=== PATIENT | male | born 1970 | race Caucasian/White ===

== ENCOUNTER → 2020-03-04 16:24 | Outpatient (BNVA) | payer BC, SELFPAY | PROVIDERS: Family Provider Nurse Practitioner Family; PCP Nurse Practitioner Family; Visit Provider Registered Nurse | DX: F41.9 Anxiety disorder, unspecified (principal); F41.8 Other specified anxiety disorders; M77.8 Other enthesopathies, not elsewhere classified; E78.5 Hyperlipidemia, unspecified; I10 Essential (primary) hypertension | CPT/HCPCS: 80053; 80061; 85025 ==

== ENCOUNTER 2021-02-28 10:04 | Outpatient (CLI) | payer BC, SELFPAY ==
--- NOTE | 2021-02-28 10:39 | ECG_ITS ---
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 Measurements Intervals [place] Rate: 77 P: 28 [place]: 161 QRS: 77 QRSD: 86 T: 48 QT: 341 QTc: 387 Interpretive Statements SINUS RHYTHM NONSPECIFIC T-WAVE ABNORMALITY Compared to ECG 12/26/2017 00:31:46 T-wave abnormality now present Electronically Signed On 02-28-2021 22:24:46 CDT by Brittany Floyd M.D. [email or web address].Fabtipp[facility] hospitalRet[facility] Con[facility].[place] [employer]/store/NU/[id number] f
[2021-02-28 10:41] LABS: Basophils % 0.6 %; Eosinophils # 0.2 10^3/uL (0.0-0.8); Eosinophils % 3.5 %; Hematocrit 44.2 % (42.0-52.0); Hemoglobin 14.9 g/dL (11.7-16.6); Lymphocytes # 1.6 10^3/uL (0.8-4.8); Lymphocytes % 25.3 %; Mean Corpuscular HGB Conc 33.7 g/dL (30.0-36.0); Mean Corpuscular Hemoglobin 30.7 pg (28.0-34.0); Mean Corpuscular Volume 91.1 fL (80-94); Mean Platelet Volume 9.4 fL (7.4-10.4); Monocytes # 0.5 10^3/uL (0.2-0.9); Monocytes % 7.9 %; Neutrophils # 3.94 10^3/uL (1.8-7.7); Neutrophils % 62.2 %; Nucleated Red Blood Cells % 0 %; Platelet Count 291 10^3/cmm (130-400); Red Blood Count 4.85 10^6/uL (4.1-5.3); Red Cell Distribution Width 12.6 % (12.1-15.1); White Blood Count 6.3 10^3/uL (4.0-10.0)
[2021-02-28 11:10] LABS: Alanine Aminotransferase 21 U/L (0-41); Albumin Level 4.2 g/dL (3.5-5.2); Alkaline Phosphatase 104 IU/L (40-130); Anion Gap 12.9 (5-19); Aspartate Amino Transferase 14 U/L (0-40); Blood Urea Nitrogen 14 mg/dL (6-20); Calcium 8.9 mg/dL (8.5-10.5); Carbon Dioxide 29 mmol/L (22-29); Chloride 101 mmol/L (98-107); Chol HDL Ratio 4.89 mg/dL (1.0-5.00); Cholesterol 181 mg/dL (0-200); Globulin 2.6 g/dL (1.3-4.6); Glomerular Filtration Rate 71.4 mL/min (90-130); Glucose 158 mg/dL (65-115); HDL Cholesterol 37 mg/dL (60-100); LDL Cholesterol Calculated 104 mg/dL (50-129); LDL HDL Ratio 2.81 RATIO (0.00-3.22); Osmolality Calculated 292 mOsm/kg (285-295); Potassium 3.9 mmol/L (3.5-5.1); Sodium 139 mmol/L (136-145); Total Bilirubin 0.5 mg/dL (0.15-1.2); Total Protein 6.8 g/dL (6.6-8.7); Triglycerides 202 mg/dL (0-150)
[2021-02-28 11:11] LABS: Troponin(5th) Baseline 6 ng/L (0-15)
[2021-02-28 12:46] LABS: Estmated Average Glucose 114; Hemoglobin A1C 5.6 % (4.0-6.0)
== END 2021-02-28 10:05 | disposition home or self-care (01) ==
PROVIDERS: PCP Registered Nurse; Visit Provider Registered Nurse
DX: R07.9 Chest pain, unspecified (principal); I10 Essential (primary) hypertension; F41.8 Other specified anxiety disorders; E78.5 Hyperlipidemia, unspecified
CPT/HCPCS: 36415; 80053; 80061; 83036; 84484; 85025; 93005

== ENCOUNTER 2021-04-18 20:04 | Emergency (ER) | payer BC, SELFPAY ==
[2021-04-18 20:23] VITALS: BP 113/75; PULSE 79; RESP 18; TEMP 36.8; O2SAT 97; BMI 38.0
--- NOTE | 2021-04-18 20:29 | XRR_ITS ---
PROCEDURE INFORMATION: Exam: XR Chest Exam date and time: 04/18/2021 8:29 PM Age: 50 years old Clinical indication: Shortness of breath; Additional info: Chest pain/ SOB TECHNIQUE: Imaging protocol: XR of the chest. Views: 1 view. COMPARISON: CR Chest 1 [place] [id number] 12/26/2017 1:23 AM FINDINGS: Lungs: Unremarkable. No consolidation. Pleural spaces: Unremarkable. No pleural effusion. No pneumothorax. Heart/Mediastinum: Unremarkable. No cardiomegaly. Bones/joints: Unremarkable. XR/XR chest 1V portable [id number] IMPRESSION: No acute findings.
--- NOTE | 2021-04-18 22:29 | ECG_ITS ---
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 Measurements Intervals [place] Rate: 57 P: 33 [place]: 160 QRS: 80 QRSD: 93 T: 69 QT: 399 QTc: 390 Interpretive Statements SINUS BRADYCARDIA Compared to ECG 02/28/2021 10:24:03 Sinus rhythm no longer present T-wave abnormality no longer present Electronically Signed On 04-20-2021 12:24:58 CDT by Keegan Green M.D. [email or web address].[email or web address]/store/OM/[id number]
[2021-04-18 22:32] LABS: Basophils # 0.1 10^3/uL (0.0-0.1); Basophils % 0.8 %; Eosinophils # 0.4 10^3/uL (0.0-0.8); Eosinophils % 4.2 %; Hematocrit 42.6 % (42.0-52.0); Hemoglobin 14.4 g/dL (11.7-16.6); Lymphocytes # 3.1 10^3/uL (0.8-4.8); Lymphocytes % 30.4 %; Mean Corpuscular HGB Conc 33.8 g/dL (30.0-36.0); Mean Corpuscular Hemoglobin 30.4 pg (28.0-34.0); Mean Corpuscular Volume 89.9 fL (80-94); Mean Platelet Volume 9.6 fL (7.4-10.4); Monocytes % 9.7 %; Neutrophils # 5.53 10^3/uL (1.8-7.7); Neutrophils % 54.6 %; Nucleated Red Blood Cells % 0 %; Platelet Count 338 10^3/cmm (130-400); Red Blood Count 4.74 10^6/uL (4.1-5.3); Red Cell Distribution Width 12.7 % (12.1-15.1); White Blood Count 10.1 10^3/uL (4.0-10.0)
[2021-04-18 22:51] LABS: Troponin(5th) Baseline 6 ng/L (0-15)
[2021-04-18 22:53] LABS: Alanine Aminotransferase 18 U/L (0-41); Albumin Level 4.2 g/dL (3.5-5.2); Alkaline Phosphatase 102 IU/L (40-130); Anion Gap 12.8 (5-19); Aspartate Amino Transferase 15 U/L (0-40); Blood Urea Nitrogen 14 mg/dL (6-20); Calcium 9.1 mg/dL (8.5-10.5); Carbon Dioxide 26 mmol/L (22-29); Chloride 103 mmol/L (98-107); Globulin 2.2 g/dL (1.3-4.6); Glomerular Filtration Rate 71.4 mL/min (90-130); Glucose 92 mg/dL (65-115); Osmolality Calculated 286 mOsm/kg (285-295); Potassium 3.8 mmol/L (3.5-5.1); Sodium 138 mmol/L (136-145); Total Bilirubin 0.2 mg/dL (0.15-1.2); Total Protein 6.4 g/dL (6.6-8.7)
[2021-04-19 00:50] LABS: Troponin 5 2HR 6.27 ng/L (0-15); Troponin 5 2HR Delta 0.27 ABS# (0-10)
--- NOTE | 2021-04-19 00:57 | ED_ITS ---
HPI - Chest Pain General: Chief Complaint: Chest Pain Stated Complaint: Chest Pains Time Seen by Provider: 04/19/21 00:57 History of Present Illness: HPI narrative: 50-year-old male patient comes in today with complaints of irregular rhythm with palpitations for the last month. Patient reports some abnormal symptoms when this occur. Patient states that he seems like the events are occurring more often. Patient does have a history of hypertension and depression with anxiety. Patient appears well. Patient appears no acute distress. Review of Systems General: Reports: 10 or more systems reviewed and unremarkable except in HPI and below Card: Reports: chest pain [facility] ED PFSH: Medical History Essential hypertension Social History (Updated 02/28/21 @ 08:44 by Krystle Das LPN) Smoking and tobacco status: never smoked Second hand smoke exposure: No Alcohol intake: never service: No Current occupational status: employed Sexually active: Yes Current gender identity: Male Physical Exam 2 Const: COMMON NORMALS: no acute distress and patient oriented x3 GENERAL APPEARANCE: cooperative HENMT: COMMON NORMALS: normocephalic and Normal external nose present HEAD & SCALP: normal to inspection and normocephalic NOSE: Normal external nose present MOUTH: Normal oral and palatal mucosa present THROAT: posterior oropharynx normal Eye: GENERAL EYE: appearance normal, both eyes and all related structures Neck/C-Spine: COMMON NORMALS: full ROM Lymph: LYMPHATIC: no lymphadenopathy noted Chest: COMMONS NORMALS: normal inspection of the chest Resp: COMMON NORMALS: normal respiratory effort EFFORT & INSPECTION: Yes able to speak in complete sentences Cardio: COMMON NORMALS: regular rate and regular rhythm RATE: regular rate RHYTHM: regular rhythm GI: COMMON NORMALS: non-tender : COMMON NORMALS: Yes no CVA tenderness BLADDER/KIDNEY EXAM: Yes no CVA tenderness Back/Pelvis: COMMON NORMALS: no CVA tenderness and thoracic and lumbar spine normal to inspection Extremity: COMMON NORMALS: normal to inspection Neuro: COMMON NORMALS: patient oriented x3 and moves all extremities Psych: COMMON NORMALS: mental status grossly normal and cooperative Skin: COMMON NORMALS: no rashes or lesions noted GENERAL SKIN EXAM: no rashes or lesions noted Course Vital Signs: Vital signs: Vital Signs Temperature 98.2 F 04/18/21 20:23 Pulse Rate 79 04/18/21 20:23 Respiratory Rate 18 04/18/21 20:23 Blood Pressure 113/75 04/18/21 20:23 Pulse Oximetry 97 04/18/21 20:23 MDM - Chest Pain MDM Narrative: Medical decision making narrative: 50-year-old male patient comes in with some chest discomfort and palpitations that he is noted at times for the last couple of months. On exam patient appears well. Respirations are even lungs are clear to auscultation. Skin is warm and dry. Auscultation of heart tones notes and occasional PVC. Vital signs otherwise are normal. Differential diagnosis includes a arrhythmia, frequent PVCs, anxiety. EKG showed no significant changes at the 0 and 2-hour gautam. Laboratory values for troponin had no some change remained at 6 at 0 and 2 hours. Remainder of labs were unremarkable. Reviewed the exam with patient and spouse with recommendations for follow-up for further evaluation of an arrhythmia. Patient may be having bouts of atrial fib or other arrhythmia. Patient in spouse were both understanding of recommendations and need for follow-up. Case management referral was placed for follow-up appointment with cardiology. Lab Data: Labs: Lab Results 04/18/21 04/18/21 04/18/21 Range/Units 22:26 22:26 22:26 WBC 10.1 H (4.0-10.0) 10^3/ uL RBC 4.74 (4.1-5.3) 10^6/u L Hgb 14.4 (11.7-16.6) g/dL Hct 42.6 (42.0-52.0) % MCV 89.9 (80-94) fL MCH 30.4 (28.0-34.0) pg MCHC 33.8 (30.0-36.0) g/dL RDW 12.7 (12.1-15.1) % Plt Count 338 (130-400) 10^3/c mm MPV 9.6 (7.4-10.4) fL Neut % (Auto) 54.6 % Lymph % (Auto) 30.4 % Hutchinson % (Auto) 9.7 % Eos % (Auto) 4.2 % Baso % (Auto) 0.8 % Neut # (Auto) 5.53 (1.8-7.7) 10^3/u L Lymph # (Auto) 3.1 (0.8-4.8) 10^3/u L Hutchinson # (Auto) 1.0 H (0.2-0.9) 10^3/u L Eos # (Auto) 0.4 (0.0-0.8) 10^3/u L Baso # (Auto) 0.1 (0.0-0.1) 10^3/u L Nucleated RBC % (a uto) 0 % Nucleated RBCs # 0.0 /100WBC Sodium 138 (136-145) mmol/L Potassium 3.8 (3.5-5.1) mmol/L Chloride 103 (98-107) mmol/L Carbon Dioxide 26 (22-29) mmol/L Anion Gap 12.8 (5-19) BUN 14 (6-20) mg/dL Creatinine 1.1 (0.7-1.2) mg/dL GFR Calculation 71.4 L (90-130) mL/min Glucose 92 (65-115) mg/dL Calculated Osmolal ity 286 (285-295) mOsm/k g Calcium 9.1 (8.5-10.5) mg/dL Total Bilirubin 0.2 (0.15-1.2) mg/dL AST 15 (0-40) U/L ALT 18 (0-41) U/L Alkaline Phosphata se 102 (40-130) IU/L Troponin T Baselin e 6 (0-15) ng/L Troponin T 120 Min [place] (0-15) ng/L Delta Troponin T (0-10) ABS# Total Protein 6.4 L (6.6-8.7) g/dL Albumin 4.2 (3.5-5.2) g/dL Globulin 2.2 (1.3-4.6) g/dL 04/19/21 Range/Units 00:11 WBC (4.0-10.0) 10^3/ uL RBC (4.1-5.3) 10^6/u L Hgb (11.7-16.6) g/dL Hct (42.0-52.0) % MCV (80-94) fL MCH (28.0-34.0) pg MCHC (30.0-36.0) g/dL RDW (12.1-15.1) % Plt Count (130-400) 10^3/c mm MPV (7.4-10.4) fL Neut % (Auto) % Lymph % (Auto) % Hutchinson % (Auto) % Eos % (Auto) % Baso % (Auto) % Neut # (Auto) (1.8-7.7) 10^3/u L Lymph # (Auto) (0.8-4.8) 10^3/u L Hutchinson # (Auto) (0.2-0.9) 10^3/u L Eos # (Auto) (0.0-0.8) 10^3/u L Baso # (Auto) (0.0-0.1) 10^3/u L Nucleated RBC % (a uto) % Nucleated RBCs # /100WBC Sodium (136-145) mmol/L Potassium (3.5-5.1) mmol/L Chloride (98-107) mmol/L Carbon Dioxide (22-29) mmol/L Anion Gap (5-19) BUN (6-20) mg/dL Creatinine (0.7-1.2) mg/dL GFR Calculation (90-130) mL/min Glucose (65-115) mg/dL Calculated Osmolal ity (285-295) mOsm/k g Calcium (8.5-10.5) mg/dL Total Bilirubin (0.15-1.2) mg/dL AST (0-40) U/L ALT (0-41) U/L Alkaline Phosphata se (40-130) IU/L Troponin T Baselin e (0-15) ng/L Troponin T 120 Min [place] 6.27 (0-15) ng/L Delta Troponin T 0.27 (0-10) ABS# Total Protein (6.6-8.7) g/dL Albumin (3.5-5.2) g/dL Globulin (1.3-4.6) g/dL EKG Data^: EKG 1: Attestation: I personally reviewed and interpreted this EKG as follows: (2024, EKG shows a normal sinus rhythm with a regular rate at 77 bpm, no ectopy or ST elevation is noted. No prior exam is available for comparison.) EKG 2: Attestation: I personally reviewed and interpreted this EKG as follows: (114, EKG shows a sinus bradycardia with a regular rate at 57 bpm. No ectopy or ST elevation is noted. No significant changes noted from prior exam.) Discharge Plan Discharge Patient Disposition: Home Clinical Impression: PVC (premature ventricular contraction), Atypical chest pain Condition: Stable Prescriptions: No Action citalopram 20 mg tablet 20 mg PO DAILY Qty: 90 RF: 0 lisinopril 5 mg tablet 5 mg PO DAILY Qty: 90 RF: 0 hydrochlorothiazide 12.5 mg tablet 12.5 mg PO DAILY Qty: 90 RF: 0 Discharge Orders: Discharge ED (Routine); Ordered 04/19/21 Ordered By: Dalton Aguiar Referrals: Gary Peacock APRN [Primary Care Provider] - Discharge Diet: Usual diet Discharge Activity: Resume usual activity Patient Instructions: Chest Pain (ED), Opioid Safety Activity Restrictions/Additional Instructions: Stay well-hydrated. Healthy diet and activity. Limit caffeine intake. Follow- up with cardiology for further evaluation and treatment. You will need to have a Holter monitor for monitoring your cardiac rhythm. Return to the ER for worsening symptoms or new concerns. Coding Level of Care Code ED Police Res[employer] Commander for Tamia Hughes
[2021-04-19 01:30] VITALS: BP 90/45; PULSE 60; RESP 18; O2SAT 96
--- NOTE | 2021-04-22 10:45 | DCPLANNER ---
personal fitness manager had message to schedule a follow up appointment for patient with [facility] and a holter monitor. personal fitness manager called [facility], spoke with Dara, gave clinic patients information. Patient had a follow up appointment scheduled for 04.20.21, which patient did attend. personal fitness manager asked Dara, if a note could be put on patients chart about a holter monitor for patient and if the physician thought patient needed one if they could order one from [facility].
== END 2021-04-19 01:31 | disposition home or self-care (01) ==
PROVIDERS: Emergency Medicine; Emergency Provider Nurse Practitioner Family; PCP Nurse Practitioner Family
DX: R07.89 Other chest pain (principal); I49.3 Ventricular premature depolarization; I10 Essential (primary) hypertension
CPT/HCPCS: 36415; 71045; 80053; 84484; 85025; 93005; 99283

== ENCOUNTER → 2024-07-03 11:52 | Outpatient (BNVA) | payer OTHER, SELFPAY | PROVIDERS: PCP Nurse Practitioner Family; Visit Provider Nurse Practitioner | DX: R52 Pain, unspecified (principal) | CPT/HCPCS: 81000 ==

== ENCOUNTER → 2025-03-22 11:19 | Outpatient (BNVA) | payer OTHER, SELFPAY | PROVIDERS: PCP Nurse Practitioner Family; Visit Provider Registered Nurse | DX: I10 Essential (primary) hypertension (principal); Z13.1 Encounter for screening for diabetes mellitus; R53.83 Other fatigue | CPT/HCPCS: 80053; 80061; 83036; 84403; 85025 ==

== ENCOUNTER 2025-05-16 23:33 | Emergency (ER) | payer OTHER, SELFPAY ==
[2025-05-16 23:39] VITALS: BP 124/80; PULSE 80; RESP 21; TEMP 36.8; O2SAT 98; BMI 41.0
--- NOTE | 2025-05-16 23:42 | ECG_ITS ---
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 Measurements Intervals [place] Rate: 67 P: 45 NM: 153 QRS: 86 QRSD: 92 T: 69 QT: 361 QTc: 382 Interpretive Statements SINUS RHYTHM Compared to ECG 04/19/2021 01:03:03 Sinus bradycardia no longer present Electronically Signed On 05-16-2025 23:51:18 CDT by Babs Merino M.D. [id number]
--- NOTE | 2025-05-16 23:48 | XRR_ITS ---
PROCEDURE INFORMATION: Exam: XR Chest Exam date and time: 05/16/2025 11:48 PM Age: 54 years old Clinical indication: Pain; Angina pectoris; Additional info: Chest pain TECHNIQUE: Imaging protocol: Radiologic exam of the chest. Views: 1 view. COMPARISON: CR XR chest 1V portable [id number] 04/18/2021 8:39 PM FINDINGS: Lungs: No confluent consolidation. Pleural spaces: No pleural effusion. No pneumothorax is seen. Heart/Mediastinum: The heart is normal in size. Mediastinal contours are within normal limits. Bones/joints: No lytic or blastic lesions. No acute osseous abnormality. Intraperitoneal space: No free air is seen under the diaphragm. XR/XR chest 1V portable [id number] IMPRESSION: No acute pulmonary process.
--- NOTE | 2025-05-16 23:58 | ED_ITS ---
HPI - Chest Pain 2 General: Chief Complaint: Chest Pain Stated Complaint: CP SOB Time Seen by Provider: 05/16/25 23:47 History of Present Illness: 54-year-old male presents emergency room with complaint of chest pain for the last 3 days. He has not noticed anything that seems to exacerbate or relieve it. He will be at rest at times hip pain that radiates from the left side of chest up into his neck and into his left arm. At the time that I seen the patient he said he did not have any pain at all when he was seeing the nurse he reported pain 2 out of 10. He has previously had cardiac evaluation which was unremarkable several years ago. He had a stress test and echocardiogram. He is not had any angiography in the past. He is not diabetic does not smoke Associated symptoms: Deny abdominal pain, dyspnea or fever(s) Related Data Previous Rx's ?Medication ?Instructions ?Recorded citalopram 20 mg tablet See Rx Instructions .Route 0 04/13/25 .COMPLEX #90 tabs hydrochlorothiazide 12.5 mg tablet 12.5 mg PO DAILY #9 0 tabs 04/13/25 lisinopril 5 mg tablet 5 mg PO DAILY #90 tabs 04/13 meloxicam 15 mg tablet 15 mg PO DAILY PRN joint pradip n 90 04/13/25 days #45 tabs aspirin 81 mg tablet,delayed 81 mg PO DAILY #30 tabs 0 05/17/25 release Allergies Allergy/AdvReac Type Severity Reaction Status Date / Time No Known Allergies Allergy Verified 05/16/25 23:42 Review of Systems 2 Const: Denies: fever(s) or chills Card: Denies: chest pain Resp: Denies: dyspnea GI: Denies: abdominal pain : Denies: dysuria, urinary frequency or urinary urgency Musc: Denies: neck pain or back pain Skin/Breast: Denies: rash PFSH ED 2 PFSH: Medical History Essential hypertension Family History Grandfather CAD (coronary artery disease) Cancer Father CAD (coronary artery disease) Grandmother Dementia Stroke Mother Diabetes Other Suicide Denies family history of Clotting disorder Chronic kidney disease (CKD) Anesthesia complication Bleeding disorder Lung disease Social History Smoking and tobacco/nicotine status: never used tobacco/nicotine Second hand smoke exposure: No Alcohol intake: never Substance/Drug Use: never service: No Current occupational status: employed Sexually active: Yes Do you think of yourself as: Straight/Heterosexual Current gender identity: Male Physical Exam 2 Const: GENERAL APPEARANCE: cooperative ORIENTATION/CONSCIOUSNESS: Yes awake, Yes oriented to person, Yes oriented to place and Yes oriented to time HENMT: COMMON NORMALS: normocephalic, atraumatic and hearing grossly normal bilaterally HEAD & SCALP: normocephalic and atraumatic Resp: COMMON NORMALS: normal respiratory effort, No retractions, No use of accessory muscles and clear to auscultation bilaterally AUSCULTATION: clear to auscultation bilaterally Cardio: COMMON NORMALS: regular rate, regular rhythm and No murmurs present (Cardio) RATE: regular rate RHYTHM: regular rhythm GI: COMMON NORMALS: Soft to palpation and No hepatosplenomegaly present A USCULTATION: Yes normoactive bowel sounds PALPATION: Yes Soft to palpation, No Tenderness to palpation present (GI), No Guarding due to palpation present (GI) and Yes No hepatosplenomegaly present Extremity: COMMON NORMALS: normal to inspection, capillary refill normal, no clubbing, cyanosis or edema, no calf tenderness and no pedal edema Neuro: SENSORIUM/ORIENTATION: Yes oriented to person, Yes oriented to place and Yes oriented to time Skin: COMMON NORMALS: no rashes or lesions noted GENERAL SKIN EXAM: no rashes or lesions noted Course 2 Vital Signs: Vital signs: Vital Signs Temperature 98.2 F 05/16/25 23:39 Pulse Rate 68 05/17/25 01:30 Respiratory Rate 21 H 05/17/25 01:30 Blood Pressure 109/71 05/17/25 01:30 Pulse Oximetry 98 05/17/25 01:30 Oxygen Delivery Me thod Room Air 05/17/25 00:33 MDM - Chest Pain Medical Decision Making Patient has no further symptoms his heart score is 2 will discharge home and set him up for outpatient stress test. Recommend he hold his hydrochlorothiazide his blood pressure is borderline low start baby aspirin daily. And follow-up with his primary care doctor after that he stress testing return if he has further symptoms. Medical Records I reviewed the patient's medical records. Lab Data I reviewed the patient's lab results. 05/17/25 00:02 05/17/25 00:02 Radiology Impressions Chest X-Ray 05/16/25 23:48 IMPRESSION: No acute pulmonary process. Laboratory Results WBC 7.89 10^3/uL (3.29-11.43) 05/17/25 00:02 RBC 4.58 10^6/uL (3.85-5.65) 05/17/25 00:02 Hgb 13.70 g/dL (11.27-16.99) 05/17/25 00:02 Hct 39.9 % (37-53) 05/17/25 00:02 MCV 87.1 fl (82-101) 05/17/25 00:02 MCH 29.9 pg (27-33) 05/17/25 00:02 MCHC 34.3 g/dL (30-55) 05/17/25 00:02 RDW 13.0 % (12.1-15.1) 05/17/25 00:02 Plt Count 295 10^3/cmm (157-399) 05/17/25 00:02 MPV 9.5 fL (7.4-10.4) 05/17/25 00:02 Neut % (Auto) 57.3 % 05/17/25 00:02 Lymph % (Auto) 24.2 % 05/17/25 00:02 [place] % (Auto) 12.9 % 05/17/25 00:02 Eos % (Auto) 4.6 % 05/17/25 00:02 Baso % (Auto) 0.6 % 05/17/25 00:02 Neut # (Auto) 4.52 10^3/uL (1.8-7.7) 05/17/25 00:02 Lymph # (Auto) 1.9 10^3/uL (0.8-4.8) 05/17/25 00:02 [place] # (Auto) 1.0 10^3/uL (0.2-0.9) H 05/17/25 00:02 Eos # (Auto) 0.4 10^3/uL (0.0-0.8) 05/17/25 00:02 Baso # (Auto) 0.1 10^3/uL (0.0-0.1) 05/17/25 00:02 Nucleated RBC % (auto) 0 % 05/17/25 00:02 Nucleated RBCs # 0.0 /100WBC 05/17/25 00:02 Sodium 138 mmol/L (136-145) 05/17/25 00:02 Potassium 3.9 mmol/L (3.5-5.1) 05/17/25 00:02 Chloride 103 mmol/L (98-107) 05/17/25 00:02 Carbon Dioxide 25 mmol/L (22-29) 05/17/25 00:02 Anion Gap 13.9 (5-19) 05/17/25 00:02 BUN 16 mg/dL (6-20) 05/17/25 00:02 Creatinine 1.1 mg/dL (0.7-1.2) 05/17/25 00:02 GFR Calculation 70.3 mL/min (90-130) L 05/17/25 00:02 Glucose 107 mg/dL (65-115) 05/17/25 00:02 Calculated Osmolality 288 mOsm/kg (285-295) 05/17/25 00:02 Calcium 9.8 mg/dL (8.5-10.5) 05/17/25 00:02 Total Bilirubin 0.3 mg/dL (0.15-1.2) 05/17/25 00:02 AST 14 U/L (0-40) 05/17/25 00:02 ALT 17 U/L (0-41) 05/17/25 00:02 Alkaline Phosphatase 115 U/L (40-130) 05/17/25 00:02 Troponin T Baseline < 6 ng/L (0-15) 05/17/25 00:02 Troponin T 120 Minute 6.21 ng/L (0-15) 05/17/25 02:07 Delta Troponin T 0.97502 ABS# (0-10) 05/17/25 02:07 Total Protein 6.8 g/dL (6.6-8.7) 05/17/25 00:02 Albumin 4.2 g/dL (3.5-5.2) 05/17/25 00:02 Globulin 2.6 g/dL (1.3-4.6) 05/17/25 00:02 All radiology interpretation(s) finalized by discharge EKG Data EKG 1: Interpretation: EKG 05/16/2025 2337 sinus rhythm rate of 67 ID interval 153 QTc [address] changes noted no T wave inversion. Compared to EKG 04/19/2021 no significant change EKG 2: Interpretation: EKG 05/17/2025 1:58 AM sinus rhythm no acute ST changes rate of 66 ID interval 144 QTc 398 compared to EKG done earlier in the same ER visit dated 05/16 there is no significant changes. Clincial Decision Support The following clinical decision support tools were used to aid in care of the patient HEART Score -> History: Slightly Suspicous, EKG: Normal, Age: 45-64 yrs, Risk Factors: 1 or 2 Risk Factors, Troponin: Baseline Trop <16 ng/L. Resulting HEART Score: 2. Discharge Plan Discharge Patient Disposition: Home Clinical Impression: Atypical chest pain Condition: Stable Prescriptions: New aspirin 81 mg tablet,delayed release (DR/EC) 81 mg PO DAILY Qty: 30 0RF No Action meloxicam 15 mg tablet 15 mg PO DAILY PRN (Reason: joint pain) 90 Days Qty: 45 2RF lisinopril 5 mg tablet 5 mg PO DAILY Qty: 90 1RF hydrochlorothiazide 12.5 mg tablet 12.5 mg PO DAILY Qty: 90 1RF citalopram 20 mg tablet See Rx Instructions .ROUTE .COMPLEX Qty: 90 1RF Dose Instruction: TAKE 1 TABLET BY MOUTH DAILY Rx Instructions: TAKE 1 TABLET BY MOUTH DAILY Discharge Orders: Discharge ED (Routine); Ordered 05/17/25 Ordered By: Nico Anderson Referrals: Ellen Gonzalez FNP [Primary Care Provider, Family Practice] Discharge Diet: Usual diet Discharge Activity: Limit activity as instructed Patient Instructions: Opioid Safety, Pain Management, Patient Portal & Mauricio Instructions Activity Restrictions/Additional Instructions: Thank you for choosing [facility] for your healthcare needs today. It is very important that you follow up as instructed or that you return to the Emergency Department should you have concerns or if your condition changes or worsens in any way. Emergency department visits are focused on emergent conditions, in some cases you may require further evaluation on an outpatient basis. You are seen in the emergency room with complaints of chest discomfort. This been going on for some time your cardiac enzymes and EKG were normal. Your heart score is 2 this represents a low risk for major coronary event. Recommend you hold the hydrochlorothiazide and start taking baby aspirin daily. Will set you up for outpatient stress test and follow-up with your primary care doctor. Return if you have further or worsening symptoms (Please note that included in your discharge packet is information concerning opioid safety and pain management. This information is given to all patients were discharged from the ER regardless of their discharge diagnosis or the medicines they usually take or are prescribed.) Print Language: Pashto Coding Level of Care Code ED Fur Plucker for Tamia Hughes
[2025-05-17] VITALS (14 sets, daily range): BP systolic 97–134; BP diastolic 56–85; PULSE 65–79; RESP 16–23; O2SAT 91–100
[2025-05-17 00:31] LABS: Hematocrit 39.9 % (37-53); Hemoglobin 13.70 g/dL (11.27-16.99); Mean Corpuscular HGB Conc 34.3 g/dL (30-55); Mean Corpuscular Hemoglobin 29.9 pg (27-33); Mean Corpuscular Volume 87.1 fl (82-101); Nucleated Red Blood Cells % 0 %; Platelet Count 295 10^3/cmm (157-399); Red Blood Count 4.58 10^6/uL (3.85-5.65); White Blood Count 7.89 10^3/uL (3.29-11.43)
[2025-05-17 00:45] LABS: Troponin(5th) Baseline < 6 ng/L (0-15)
[2025-05-17 00:47] LABS: Alanine Aminotransferase 17 U/L (0-41); Albumin Level 4.2 g/dL (3.5-5.2); Alkaline Phosphatase 115 U/L (40-130); Anion Gap 13.9 (5-19); Aspartate Amino Transferase 14 U/L (0-40); Blood Urea Nitrogen 16 mg/dL (6-20); Calcium 9.8 mg/dL (8.5-10.5); Carbon Dioxide 25 mmol/L (22-29); Chloride 103 mmol/L (98-107); Creatinine Clr Calc Pharmacy 100.0311; Globulin 2.6 g/dL (1.3-4.6); Glucose 107 mg/dL (65-115); Osmolality Calculated 288 mOsm/kg (285-295); Potassium 3.9 mmol/L (3.5-5.1); Sodium 138 mmol/L (136-145); Total Protein 6.8 g/dL (6.6-8.7)
--- NOTE | 2025-05-17 01:58 | ECG_ITS ---
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 Measurements Intervals [place] Rate: 66 P: 42 DC: 144 QRS: 84 QRSD: 99 T: 72 QT: 384 QTc: 404 Interpretive Statements SINUS RHYTHM Compared to ECG 05/16/2025 23:37:58 No significant changes Electronically Signed On 05-18-2025 20:45:30 CDT by Babs Merino M.D. [email or web address] [id number]
[2025-05-17 02:39] LABS: Troponin 5 2HR 6.21 ng/L (0-15); Troponin 5 2HR Delta 0.21001 ABS# (0-10)
--- NOTE | 2025-05-17 17:09 | DCPLANNER ---
faxed outpatient lexiscan to scheduling
== END 2025-05-17 03:07 | disposition home or self-care (01) ==
PROVIDERS: Emergency Provider Family Medicine; PCP Nurse Practitioner Family
DX: R07.89 Other chest pain (principal); I10 Essential (primary) hypertension
CPT/HCPCS: 36415; 71045; 80053; 84484; 85025; 93005; 99285; J9999

== ENCOUNTER 2025-05-24 14:05 | Outpatient (CLI) | payer OTHER, SELFPAY | END 2025-05-24 14:06 | disposition home or self-care (01) | LOC: SLEEP 14:07 | PROVIDERS: PCP Nurse Practitioner Family; Visit Provider Internal Medicine Pulmonary Disease | DX: G47.33 Obstructive sleep apnea (adult) (pediatric) (principal) | CPT/HCPCS: G0399 ==

== ENCOUNTER 2025-05-25 06:07 | Outpatient (CLI) | payer OTHER, SELFPAY ==
--- NOTE | 2025-05-25 | ECG_ITS ---
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
[2025-05-25 06:51] VITALS: BMI 41.0
--- NOTE | 2025-05-25 06:51 | NMCV_ITS ---
NM roland perf SPECT r/s* [id number] Mau Hutson Age: 54 Gender: M : 1970 Exam Date: 05/25/2025 07:33 Ordering Phys: Nico Anderson DO Technologist: SVETLANA Pickett Exam Location: [facility] Indications: cp STRESS TEST Please see separate stress test report in [facility] for full findings IMAGE PROTOCOL Rest/Stress 1 Lexiscan Day Radiopharmaceutical Dose (mCi) Administration Site Administered by Rest: Tc-99m 10.5 IV Jenny Thomas, ADMISSION NURSE Sestamibi Stress:Tc-99m 33 IV Jenny William, ADMISSION NURSE Sestamibi Rest: 25-May-2025 60 Discovery 630 Stress: 25-May-2025 30 Discovery 630 0.4mg Lexiscan. Images obtained in supine and prone position. SPECT RESULTS Technical Quality: Good Raw Data Analysis: Normal Image Corrections: No attenuation or motion correction applied Summed Stress Score: 0 Summed Rest Score: 2 Summed Difference Score: 0 PERFUSION FINDINGS SPECT images demonstrate homogeneous tracer distribution throughout the myocardium. FUNCTIONAL RESULTS (calculated via Gated SPECT) Stress Image LV EF (%): 74 Stress EDV (mL):96 TID: 1.33 Stress ESV (mL):25 FUNCTIONAL FINDINGS: There is normal left ventricular systolic function. TID ratio is elevated. IMPRESSIONS 1. Normal myocardial perfusion imaging with no evidence of ischemia 2. LV systolic function is normal 3. TID ratio is elevated, however in absence of significant perfusion abnormalities, significance of this finding is equivocal. Keegan Green MD (Electronically Signed) Final Date: 27 May 2025 10:09 S
[2025-05-25 08:11] VITALS: BP 117/76; PULSE 71
== END 2025-05-25 06:08 | disposition home or self-care (01) ==
LOC: CDL 06:08
PROVIDERS: PCP Nurse Practitioner Family; Visit Provider Family Medicine
DX: R07.89 Other chest pain (principal)
CPT/HCPCS: 78452; 93017; A9500; J2785